=== PATIENT | male | born 1995 | race Caucasian/White ===

== ENCOUNTER 2017-09-22 00:45 | Emergency (ER) | payer SELFPAY ==
[2017-09-22] MEDS ORDERED: Amoxicillin PO (*) 500 MG CAP PO ONE (00:59)
[2017-09-22] MEDS ORDERED: Ibuprofen TAB* 600 MG PO ONE (00:59)
[2017-09-22 01:14] VITALS: BP 130/70
--- NOTE | 2017-09-22 01:43 | ED ---
Gerardo Castillo Tiffany, scribed for Bolivar Pintouel on 09/22/17 at 0105 . Complex/Multi-Sys Presentation - HPI Summary HPI Summary: This patient is a 22 year old M presenting to [facility] with a chief complaint of left upper dental pain since years ago, progressively worse recently. The patient rates the pain 9/10 in severity. Symptoms aggravated by nothing. Symptoms alleviated by nothing. - History Of Current Complaint Chief Complaint: EDDentalPain Time Seen by Provider: 09/22/17 00:54 Hx Obtained From: Patient Onset/Duration: Gradual Onset - Several years, Still Present, Worse Since - Recently Severity Currently: Severe - 9 Aggravating Factor(s): Nothing Alleviating Factor(s): Nothing - Allergies/Home Medications Allergies/Adverse Reactions: Allergies Allergy/AdvReac Type Severity Reaction Status Date / Time No Known Allergies Allergy Verified 10/16/14 17:33 PMH/Surg Hx/FS Hx/Imm Hx Previously Healthy: Yes Opthamlomology History: Denies: Hx Legally Blind EENT History: Denies: Hx Deafness Infectious Disease History: No Infectious Disease History: Denies: Traveled Outside the [place] in Last 30 Days - Family History Known Family History: Positive: Other - Pt denies knowledge of relevant family history - Social History Hx Substance Use: Yes Substance Use Type: Reports: Marijuana Substance Use Comment - Amount & Last Used: today Hx Tobacco Use: Yes Smoking Status (MU): Current Every Day Smoker Type: Cigarettes Amount Used/How Often: 1 PPD Review of Systems Negative: Fever Positive: Dental Pain - Left upper dental All Other Systems Reviewed And Are Negative: Yes Physical Exam - Summary Physical Exam Summary: Appearance: Well appearing, no pain distress Skin: warm, dry, reflects adequate perfusion Head/face: normal Eyes: EOMI, CHEIKH ENT: normal Dental: Tenderness around tooth 1,2,3 area Neck: supple, non-tender Respiratory: CTA, breath sounds present Cardiovascular: RRR, pulses symmetrical Abdomen: non-tender, soft Bowel: present Musculoskeletal: normal, strength/ROM intact Neuro: normal, sensory motor intact, A&Ox3 Triage Information Reviewed: Yes Vital Signs On Initial Exam: Initial Vitals Temp Pulse Resp BP Pulse Ox 99 F 64 18 137/70 100 09/22/17 00:48 09/22/17 00:48 09/22/17 00:48 09/22/17 00:48 09/22/17 00:48 Vital Signs Reviewed: Yes Diagnostics - Vital Signs Vital Signs Temp Pulse Resp BP Pulse Ox 09/22/17 00:48 99 F 64 18 137/70 100 - Laboratory Lab Statement: Any lab studies that have been ordered have been reviewed, and results considered in the medical decision making process. Complex Multi-Symp Course/Dx Course Of Treatment: This patient is a 22 year old M presenting to [facility] with a chief complaint of left upper dental pain since years ago, progressively worse recently. Patient will be discharged with prescription for Amoxicillin and Motrin and follow up from dentist. The patient is agreeable with this plan. - Diagnoses Provider Diagnoses: Toothache Discharge - Discharge Plan Condition: Stable Disposition: HOME Prescriptions: Amoxicillin PO (*) [Amoxicillin 875 MG (*)] 875 mg PO BID #20 tab Ibuprofen TAB* [Motrin TAB* 600 MG] 600 mg PO Q8H PRN #20 tab MDD 3 PRN Reason: Pain Patient Education Materials: Toothache (ED) Referrals: No Primary Care Phys,NOPCP [Primary Care Provider] - Additional Instructions: You are advised to arrange a dentist in your area to set up a follow up appointment in 3 days. Return to the Emergency Room if current symptoms worsen or if new symptoms develop. The documentation as recorded by the Gerardo beltran Tiffany accurately reflects the service I personally performed and the decisions made by Millie beltran Emmanuel.
== END 2017-09-22 01:27 | disposition home or self-care (01) ==
LOC: ED 00:45
DX: K08.89 Other specified disorders of teeth and supporting structures (principal); F17.210 Nicotine dependence, cigarettes, uncomplicated
CPT/HCPCS: 99282; A9270-GY